=== PATIENT | male | born 1990 | race Caucasian/White ===

== ENCOUNTER 2020-11-24 19:29 | Observation (INO) | payer OTHER ==
[2020-11-24 19:55] VITALS: TEMP 98; BMI 28.1
[2020-11-25 00:09] LABS: BASO % 0.6 % (0-2.0); EOS % 3.1 % (0-4.5); HEMATOCRIT 37.4 % (35.4-49); HEMOGLOBIN 12.5 GM/dL (11.7-16.9); LYMPH % 42.2 % (8-40); MCH 28.9 pg (25.7-33.7); MCHC 33.5 g/dl (32.0-35.9); MEAN CELL VOLUME 86.1 fl (80-96); MEAN PLT VOLUME 7.8 fl (7.5-11.1); MONO % 6.7 % (3.8-10.2); NEUT % 47.4 % (42.8-82.8); PLATELET COUNT 250 K/MM3 (134-434); RBC 4.35 M/mm3 (4.00-5.60); WHITE BLOOD COUNT 4.7 K/mm3 (4.0-10.0)
[2020-11-25 00:33] LABS: POTASSIUM 4.2 mmol/L (3.5-5.1)
[2020-11-25 00:35] LABS: ALBUMIN 3.7 g/dl (3.4-5.0); BLOOD UREA NITROGEN 18.3 mg/dL (7-18)
[2020-11-25 00:40] LABS: BILIRUBIN,TOTAL 0.3 mg/dL (0.2-1); TOT PROT 6.8 g/dl (6.4-8.2)
[2020-11-25] MEDS ORDERED: chlordiazePOXIDE HCL 25 MG CAPSULE PO ONE (01:24)
[2020-11-25] MEDS ORDERED: chlordiazePOXIDE HCL 25 MG CAPSULE ONE (02:05)
[2020-11-25] MEDS ORDERED: LORazepam 1 MG TABLET PO PRN (03:26)
[2020-11-25] MEDS ORDERED: FOLIC ACID INJECTION - 1 MG, THIAMINE HCL 100 MG, MULTIVIT INJECTION ADULT 10 ML in SOD... IVPB ONE (03:27)
[2020-11-25] MEDS ORDERED: LORazepam 2 MG/ML SDV VIAL ONE (05:51)
[2020-11-25] MEDS: LORazepam 1 MG TABLET PO SCH ×2 (05:55→15:27)
[2020-11-25 07:12] VITALS: BP 113/69; PULSE 77
[2020-11-25 08:23] LABS: BASO % 0.5 % (0-2.0); EOS % 3.8 % (0-4.5); HEMATOCRIT 36.7 % (35.4-49); HEMOGLOBIN 12.2 GM/dL (11.7-16.9); LYMPH % 42.4 % (8-40); MCH 28.9 pg (25.7-33.7); MCHC 33.2 g/dl (32.0-35.9); MEAN CELL VOLUME 87.2 fl (80-96); MEAN PLT VOLUME 8.6 fl (7.5-11.1); MONO % 10.2 % (3.8-10.2); NEUT % 43.1 % (42.8-82.8); PLATELET COUNT 231 K/MM3 (134-434); RBC 4.21 M/mm3 (4.00-5.60); RDW 13.9 % (11.9-15.9)
[2020-11-25 08:46] LABS: POTASSIUM 4.3 mmol/L (3.5-5.1)
[2020-11-25 08:53] LABS: ALBUMIN 3.8 g/dl (3.4-5.0)
[2020-11-25 08:54] LABS: PHOSPHOROUS 4.4 mg/dL (2.5-4.9)
[2020-11-25 08:55] LABS: BILIRUBIN,TOTAL 0.5 mg/dL (0.2-1)
[2020-11-25 08:56] LABS: TOT PROT 6.6 g/dl (6.4-8.2)
[2020-11-25 08:57] LABS: CREATININE 0.9 mg/dL (0.55-1.3); MAGNESIUM 2.3 mg/dL (1.8-2.4)
[2020-11-25 09:00] LABS: CALCIUM 9.1 mg/dL (8.5-10.1)
[2020-11-25] MEDS ORDERED: THIAMINE HCL 200 MG/2 ML VIAL IVPB SCH (10:00)
[2020-11-25] MEDS ORDERED: ENOXAPARIN NA (PORCINE) 40 MG/0.4 ML DISP.SYRIN SQ SCH (10:00)
[2020-11-25] MEDS ORDERED: FOLIC ACID 1 MG TABLET (FP) PO ONE (10:00)
[2020-11-25] MEDS ORDERED: cloNIDine HCL 0.1 MG TABLET PO PRN (10:31)
[2020-11-25] MEDS ORDERED: THIAMINE HCL 200 MG/2 ML VIAL ONE (10:59)
[2020-11-25] MEDS ORDERED: METHADONE HCL 10 MG TABLET ONE (10:59)
[2020-11-25] MEDS ORDERED: METHADONE HCL 10 MG TABLET (FOR DETOX USE ONLY) PO ONE (11:00)
[2020-11-25] MEDS ORDERED: ENOXAPARIN NA (PORCINE) 40 MG/0.4 ML DISP.SYRIN SQ ONE (11:00)
[2020-11-25] MEDS ORDERED: FOLIC ACID 1 MG TABLET (FP) ONE (11:00)
[2020-11-26] MEDS ORDERED: LORazepam 1 MG TABLET PO SCH (05:00)
[2020-11-26] MEDS ORDERED: METHADONE 20 MG, METHADONE 5 MG PO ONE (10:00)
[2020-11-27] MEDS ORDERED: LORazepam 0.5 MG TABLET PO PRN
[2020-11-27] MEDS ORDERED: LORazepam 0.5 MG TABLET PO SCH (05:00)
[2020-11-27] MEDS ORDERED: METHADONE HCL 10 MG TABLET PO ONE (10:00)
[2020-11-28] MEDS ORDERED: LORazepam 0.5 MG TABLET PO ONE (05:00)
[2020-11-28] MEDS ORDERED: METHADONE 10 MG, METHADONE 5 MG PO ONE (10:00)
[2020-11-29] MEDS ORDERED: METHADONE HCL 10 MG TABLET PO ONE (10:00)
[2020-11-30] MEDS ORDERED: METHADONE HCL 5 MG TABLET PO ONE (06:00)
== END 2020-11-25 11:00 | disposition left against medical advice (07) ==
LOC: JER 19:29 → INTOOBSV 11-25 02:10 → JERBED 11-25 02:10
PROVIDERS: ADMIT Internal Medicine; ATTEND Internal Medicine
DX: F10.239 Alcohol dependence with withdrawal, unspecified (principal); F11.20 Opioid dependence, uncomplicated; F19.10 Other psychoactive substance abuse, uncomplicated; U07.1 COVID-19; T40.1X1A Poisoning by heroin, accidental (unintentional), initial encounter; Z29.9 Encounter for prophylactic measures, unspecified; F41.9 Anxiety disorder, unspecified; R56.9 Unspecified convulsions; F17.210 Nicotine dependence, cigarettes, uncomplicated
CPT/HCPCS: 36415; 71045-TC-FY; 80053; 83735; 84100; 85025; 93005; 93010; 99285-25; C9803; G0378; U0003